=== PATIENT | male | born 1980 | race Caucasian/White ===

== ENCOUNTER 2020-07-11 23:21 | Emergency (ER) | payer SELFPAY ==
--- NOTE | 2020-07-12 00:15 | RAD ---
Radiograph right ankle 3 views: 07/11/2020 11:56 PM HISTORY: 40-year-old male with acute traumatic injury to right ankle. FINDINGS: Mildly displaced Fleming type II lateral malleolus fracture. Moderately posteriorly displaced medial malleolus fracture. Mild buckling of posterior cortex of posterior malleolus, probably minimally displaced fracture. Asymmetry of ankle mortise, with talus slightly shifted to the right resulting in widening of medial aspect of mortise. Talar dome maintained. IMPRESSION: Acute, traumatic, displaced trimalleolar fracture.
[2020-07-12] MEDS ORDERED: Ondansetron PF 4 MG/2 ML Vial ONE (00:58)
[2020-07-12] MEDS ORDERED: Morphine 4 MG/ML VIAL ONE ×2 (00:58→01:18)
== END 2020-07-12 01:41 | disposition home or self-care (01) ==
LOC: MADERS 23:21
DX: S82.851A Displaced trimalleolar fracture of right lower leg, initial encounter for closed fracture (principal); Y04.0XXA Assault by unarmed brawl or fight, initial encounter; Y93.72 Activity, wrestling
CPT/HCPCS: 29515; 96374; 96375; J2270; J2405